=== PATIENT | male | born 1960 | race Caucasian/White ===

== ENCOUNTER 2016-05-11 23:59 | Inpatient (IN) | payer MEDICAID ==
--- NOTE | ~2016-05-11 | CO ---
Unit #: [id number] #: [id number] Patient: VELVET PORTILLO [id number] [address] [place], [place] [address] [id number] MR#: [id number] NAME: VELVET PORTILLO ROOM: 313 Age: 55 Sex: M Admission Date: 05/12/2016 : 1960 Attending Physician: Emmanuel Pratt M.D. Primary Care Physician: Primary Care Physician No CONSULTATION REPORT REASON FOR CONSULTATION Nonsustained ventricular tachycardia. HISTORY OF PRESENT ILLNESS This is a pleasant 55-year-old male, who was initially admitted on 05/12/2016 with complaints of intractable back pain and possible pneumonia. During the admission, the patient also had an elevated creatinine and was hyperkalemic. He has known chronic kidney disease, stage 4. However, his lab values continue to increase and he required initiation of hemodialysis during this hospitalization. We were asked to see the patient today secondary to an 8-beat run of nonsustained ventricular tachycardia. The patient denied any complaints of palpitations. He states he did not feel any chest pain, shortness of breath. The patient states he does not have any issues of chest pain or shortness of breath. His electrolytes were noted to be normal, potassium was 4.9, magnesium of 2.3. EKG was performed, which showed normal sinus rhythm, rate of 63 beats per minute, low voltage QRS, QTc interval of 458 msec. No acute ischemic changes noted. The patient was recently evaluated in 02/2016 with a Lexiscan Cardiolite, which showed no stress-induced ischemia. His LVEF at that time was found to be 56%. PAST MEDICAL HISTORY 1. Hypertension. 2. Diastolic congestive heart failure. 3. Paroxysmal atrial fibrillation. 4. Insulin-dependent diabetes mellitus. 5. Chronic kidney disease, stage 4, newly started on hemodialysis this admission. 6. Issues with noncompliance. 7. Legally blind in the right eye. 8. Morbid obesity with a BMI of 48. 9. Obstructive sleep apnea. 10. Depression. 11. Acute glaucoma in the past. 12. Diabetic peripheral neuropathy. PAST SURGICAL HISTORY 1. Left knee arthroscopic surgery. 2. Tonsillectomy. HOME MEDICATIONS Cosopt one drop to both eyes b.i.d., brimonidine tartrate one drop to both eyes daily, latanoprost 1 mL left eye at bedtime, Neurontin 100 mg p.o. Unit #: [id number] #: [id number] Patient: VELVET PORTILLO b.i.d., Paxil 10 mg p.o. daily, Coreg 3.125 mg p.o. b.i.d., Lipitor 20 mg p.o. q.h.s., hydralazine 25 mg p.o. b.i.d., ferrous gluconate 324 mg p.o. b.i.d., isosorbide dinitrate 20 mg p.o. b.i.d. ALLERGIES Penicillin. FAMILY HISTORY The patient reports family history of enlarged heart in father, but no documented coronary artery disease. SOCIAL HISTORY Denies tobacco or illicit drugs or alcohol other than occasional alcohol use. REVIEW OF SYSTEMS Negative except for what was stated above in the HPI. PHYSICAL EXAMINATION VITAL SIGNS: Temperature 98.1, respiratory rate 18 to 20, pulse is 60 to 70, blood pressure 124/64. GENERAL APPEARANCE: This is a morbidly obese, 55-year-old male, who is up in a chair currently. He is in no acute distress. HEENT: Head is atraumatic and normocephalic. Eyes; pupils are equal and round. NECK: Supple. Trachea is midline. No JVD. No carotid bruits. CARDIOVASCULAR: S1, S2. No murmurs, gallops, or rubs. RESPIRATORY: Lungs are clear anteriorly, diminished in the bases throughout. ABDOMEN: Obese, pannus, soft, nontender nondistended. Bowel sounds present. EXTREMITIES: Pulses are palpable. Trace to 1+ lower extremity edema. NEUROLOGIC: He is awake, alert, and oriented x3. He moves all extremities equally. He follows commands with ease. DIAGNOSTIC STUDIES LABORATORY RESULTS: Sodium is 136, potassium 4.9, chloride 99, CO2 of 25, BUN 53, creatinine 5.6, glucose 286, magnesium is 2.3. Last hemoglobin was 10.7, hematocrit 34.2, WBC is 14.6, platelet count 220. He currently has cardiac enzymes, which are pending. CARDIOVASCULAR STUDIES: EKG shows normal sinus rhythm, 63 beats per minute. Low voltage QRS, QTc interval of 458 msec. No acute ischemic changes noted. IMPRESSION 1. Nonsustained ventricular tachycardia, asymptomatic. 2. Chronic kidney disease, newly initiated on hemodialysis this admission. 3. Hypertension. 4. Morbid obesity. 5. History of paroxysmal atrial fibrillation. 6. Insulin-dependent diabetes mellitus. 7. Noncompliance issues. 8. Obstructive sleep apnea. 9. Legally blind in the right eye. 10. History of diastolic congestive heart failure. PLAN Unit #: [id number] #: [id number] Patient: VELVET PORTILLO We were asked to see the patient secondary to nonsustained ventricular tachycardia. The patient denies any complaints of chest pain. His EKG has been performed and reviewed and shows no acute ischemic change. The patient has undergone recent Lexiscan stress test in 02/2016, which showed no stress-induced ischemia. LVEF at that time was 56%. At this time, he is on appropriate cardiac medications. His electrolytes were noted to be within normal limits. Today potassium was 4.9, magnesium 2.3. For now, we will trend cardiac enzymes. Call for troponin greater than 0.5. We will check TSH level today and do routine labs, which include BMP, CBC, and magnesium level in the a.m. The patient does eventually need ischemic workup with cardiac catheterization once his hemodialysis is established. This can either be done depending on how much longer he is in the hospital either as an inpatient workup or outpatient depending on his length of stay and cardiac enzymes. For now, continue medical management and observe the patient's rhythm. Thank you for asking us to see this pleasant patient. We appreciate the consult. Dictated by... Bibi Lyons A.P.R.N. LMW/modl TD: 05/28/2016 05:29 JOB #: [id number] CONSULTATION REPORT Page 1 of 1 X Bibi Lyons APRN CONSULTATION REPORT
--- NOTE | ~2016-05-11 | BMI ---
[facility] Nutrition Therapy DATE: 05/15/16 Patient: VELVET PORTILLO Physician: CAIO Address: [address] [place] [address] STREET Room/Bed: [address] [place] [address], Zip: [place] [address] Admit Date: 05/12/16 Date of : 58 Height: 5 8 Weight: 302 137 HIGH BMI NOTE: DX: 55 yo male admitted for back and hip pain ANTHROPOMETRICS: Ht: 5'8" Wt: 137.3 kg (302#) BMI: 46.0 DIET: Consistent carb INTERVENTION: Consistent carb RECOMMENDATIONS: 1. Continue consistent carb diet to promote gradual weight loss towards healthy BMI. RD will f/u per protocol. Respectfully, Teri Angulo, [facility] Kumar Iniguez MS, RD, LD [facility] cc: client file
--- NOTE | ~2016-05-11 | CR72 ---
[facility] A Service of [facility] RADIOLOGY TEXT RESULTS PATIENT: VELVET PORTILLO LOCATION: A 313-01 : [birth year] UNIT #: [id number] AGE: [address]: Hugo Saini MD SEX: M ORDER DR: [id number] [facility] [address] [facility]. [place], [place] [address] [id number] I MR#: [id number] Acc #: [id number] NAME: VELVET PORTILLO : 1960 SEX: M STUDY DATE/TIME: 05/16/2016 13:40 UNIT: [facility] ROOM: [facility] STUDY DESCRIPTION: CR Chest Single View Portable Attending Physician: Jose Martin Pineda M.D. Referring Physician: Jose Martin Pineda M.D. Ordering Physician: Kirk Paredes M.D. Primary Care Physician: Primary Care Physician No MEDICAL IMAGING REPORT This report is preliminary unless electronic signature is present EXAM Portable chest, 05/16. INDICATION Shiley placement today. Shortness of air. FINDINGS AP portable chest compared with 02/23/2016. Heart remains enlarged and the mediastinum is widened. There is a right IJ central venous catheter with the tip in the SVC. No pneumothorax is seen. The lungs are clear. Dictated by... Donald Virgen Jr., M.D. THIS IS AN ELECTRONICALLY VERIFIED REPORT Donald Virgen Jr., M.D. at 05/19/2016 8:07 AM LACHO/laury TD: 05/16/2016 14:12 JOB #: [id number] MEDICAL IMAGING REPORT Page 1 of 1 COPY
--- NOTE | ~2016-05-11 | DS ---
Unit #: [id number] #: [id number] Patient: VELVET PORTILLO [id number] [address] [address] [id number] I MR#: [id number] NAME: VELVET PORTILLO ROOM: 549 Age: 55 Sex: M Admission Date: 05/12/2016 : 1960 Discharge Date: Attending Physician: Jose Martin Pineda M.D. Referring Physician: Jose Martin Pineda M.D. DISCHARGE SUMMARY PREOPERATIVE DIAGNOSES 1. Herniated nucleus pulposus. 2. Radiculopathy. POSTOPERATIVE DIAGNOSES 1. Herniated nucleus pulposus. 2. Radiculopathy. PROCEDURE PERFORMED Lumbar epidural steroid injection with fluoroscopic guidance. INDICATIONS FOR PROCEDURE The patient is a 55-year-old male with left-sided disk herniation including acute left lower extremity radicular type pain. He requested to do an epidural steroid and epidural pads with the patient's symptoms. We are going to provide surgical intervention. Risks and benefits of all have been reviewed. DESCRIPTION OF PROCEDURE The patient was placed in a seated position. Standard monitors were applied. Sterile prep and drape of the lumbar area was performed. The skin at the L4-L5 level was localized with 1% lidocaine. An 18-gauge Hustead needle was then advanced via loss of resistance technique and fluoroscopic guidance in toward the epidural space. After confirming proper positioning with fluoroscopy and radiographic contrast, 80 mg Depo-Medrol and 4 mL of 0.125% bupivacaine were deposited. The patient tolerated procedure otherwise well and was discharged to the recovery room in stable condition. Dictated by... Reid Tran/laith TD: 05/14/2016 23:20 JOB #: [id number] CC: Isiah Shearer M.D. Unit #: [id number] #: [id number] Patient: VELVET PORTILLO DISCHARGE SUMMARY Page 1 of 1 X Raulito Conteh MD X DISCHARGE SUMMARY
--- NOTE | ~2016-05-11 | CO ---
Unit #: [id number] #: [id number] Patient: VELVET PORTILLO [id number] [address] [place], [place] [address] [id number] I MR#: [id number] NAME: VELVET PORTILLO ROOM: 549 Age: 55 Sex: M Admission Date: 05/12/2016 : 1960 Attending Physician: Jose Martin Pineda M.D. Primary Care Physician: No Primary Care Physician Consultation Date: 05/13/2016 CONSULTATION REPORT HISTORY OF PRESENT ILLNESS The patient is a 55 year old who has suffered with a four-week history of incapacitating back and left hip pain. PAST MEDICAL HISTORY 1. Cardiac disease. 2. Congestive heart failure. 3. High blood pressure. 4. Diabetes. 5. Kidney disease. PAST SURGICAL HISTORY 1. Tonsillectomy. 2. Left knee surgery. 3. Left third, fourth, and fifth toe amputations. 4. Stent placement in the right eye. MEDICATIONS 1. Eye drops. 2. Brimonidine. 3. Latanoprost. 4. Neurontin. 5. Paxil. 6. Coreg. 7. Lipitor. 8. Hydralazine. 9. Ferrous gluconate. 10. Isosorbide. 11. Furosemide. 12. Humulin. REVIEW OF SYSTEMS A 14-point review of systems is negative except for the above complaints. PHYSICAL EXAMINATION The patient is above ideal weight. He has positive straight leg test on the left, negative on the right. He is otherwise neurologically intact. DIAGNOSTIC STUDIES IMAGING: MRI reveals a large disk herniation on the left at L5-S1. CLINICAL IMPRESSION Lumbar radiculopathy, severe. Unit #: [id number] #: [id number] Patient: VELVET PORTILLO RECOMMENDATIONS The patient was discussed the various treatment options including surgery. He would like to avoid that if at all possible. Perhaps an epidural steroid injection would be a way to temporize and facilitate outpatient physical therapy. I will ask Dr. Conteh to perform that at his convenience today if he is available. Dictated by... Isiah Shearer M.D. JOVANNA/tru TD: 05/13/2016 12:48 JOB #: [id number] CONSULTATION REPORT Page 1 of 1 X Isiah Shearer MD CONSULTATION REPORT
--- NOTE | ~2016-05-11 | HP ---
Unit #: [id number] #: [id number] Patient: VELVET PORTILLO [id number] [address] [place], [place] [address] [id number] I MR#: [id number] NAME: VELVET PORTILLO ROOM: 13796 Age: 55 Sex: M Admission Date: 05/12/2016 : 1960 Attending Physician: Jose Martin Pineda M.D. Referring Physician: Jose Martin Pineda M.D. Primary Care Physician: No Primary Care Physician HISTORY AND PHYSICAL REASON FOR ADMISSION Intractable low-back pain, bibasilar pneumonia seen on CT abdomen and pelvis. HISTORY OF PRESENT ILLNESS The patient is a morbidly obese 55-year-old male who states that over the past 48 hours he was unable to walk. In fact, he could only crawl while he was at home. He stated that he was unable to place his left foot on the ground secondary to intractable back pain and therefore presented to the ER for further evaluation through ER course. He apparently had undergone a CT abdomen and pelvis which did not show any acute process but raised the possibility of bibasilar pneumonia as well as lung nodules which were noted. Thus, he was admitted for the same. His initial white count was noted to be 10.7, his hemoglobin 10.3. MCV was noted to be 78. GFR 14. Creatinine 4.2, potassium of 3.4 as well. He had been recently admitted to our particular institution from February 23, 2016 to February 29, 2016, with a diagnosis at that time of acute on chronic kidney disease. His baseline creatinine is 4.3. PAST MEDICAL HISTORY 1. Chronic kidney disease, baseline creatinine 4.3. 2. Paroxysmal atrial fibrillation. 3. Anasarca. 4. Diabetes, type 2, poor controlled with noncompliance. 5. Hypertension. 6. Diastolic heart failure, ejection fraction 55% to 60%. 7. Iron-deficiency anemia, baseline close to 10. 8. Sleep apnea. 9. Morbid obesity. 10. Moderate protein malnutrition. 11. Depression. 12. Acute glaucoma in the past. 13. Diabetic peripheral neuropathy. 14. Noncompliance with medications. 15. Legally blind from right eye. 16. History of left knee arthroscopy. 17. Tonsillectomy. HOME MEDICATIONS 1. Eye drops as directed. 2. Neurontin. 3. Paxil. Unit #: [id number] #: [id number] Patient: VELVET PORTILLO 4. Coreg. 5. Lipitor. 6. Hydralazine. 7. Ferrous gluconate. 8. Isosorbide dinitrate. 9. Lasix. 10. Humulin R. 11. Humulin N. ALLERGIES Penicillin. FAMILY HISTORY Reviewed, noncontributory, nonpertinent. SOCIAL HISTORY No smoking. No illicit drug use. Social alcohol use. REVIEW OF SYSTEMS Please see HPI. A 12-point otherwise negative except for those positive and noted in the HPI. PHYSICAL EXAMINATION VITAL SIGNS: Temperature 98.2, pulse 64, respiratory rate 16, blood pressure 168/87. GENERAL APPEARANCE: The patient is a morbidly obese 55-year-old male who is lying flat, states that he has severe pain in his left lower extremity as well as back. HEENT: Head: Atraumatic, normocephalic. Ears: Tympanic membranes did not reveal any erythema or injection. NECK: Supple. CARDIOVASCULAR: S1, S2 without murmur. RESPIRATORY: Diminished anterior auscultation bilaterally. GASTROINTESTINAL/ABDOMEN: Distention noted. Nontender. EXTREMITIES: Lower extremities: No calf tenderness. One plus edema noted. Straight leg raise test positive, 45 degrees on left side. NEUROLOGIC: The patient is A and O x3. DIAGNOSTIC STUDIES LABORATORY: Labs at time of admission: Please see above. INITIAL ADMISSION DIAGNOSES 1. Intractable low-back pain. 2. Left lower extremity radiculopathy. 3. Bibasilar pneumonia seen on CT abdomen and pelvis. 4. Chronic kidney disease, baseline creatinine approximately 4.[address] Vasquez of nephrology services. 5. 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 6. Diabetes type 2 with last hemoglobin A1c in February 2016 of 9.4%. 7. Longstanding history of noncompliance. 8. Hypertension. 9. Diastolic heart failure. 10. Iron-deficiency anemia, baseline hemoglobin 10. 11. Probable sleep apnea. 12. Severe morbid obesity. PLAN 1. Admission telemetry floor. Unit #: [id number] #: [id number] Patient: VELVET PORTILLO 2. CT chest noncontrast. 3. I doubt given clinical picture the patient is breathing on room air, not tachycardic with a normal white count if he truly has pneumonia versus mild fluid overload. 4. Will check a CT chest to ascertain. 5. Consideration may be given to nephrology services; however, his creatinine is normal. His main concern at this point in time is his intractable low-back pain as well as difficulty with ambulation. Therefore, will attempt MRI lumbar spine without contrast and pending those results spine consultation with Dr. Shearer and associates may be necessary. Plans have been reviewed with patient in detail. He is full code. Dictated by Jose Martin Pineda M.D. EDUARDO/tru TD: 05/12/2016 11:46 JOB #: [id number] HISTORY AND PHYSICAL Page 1 of 1 X Jose Martin Pineda MD X HISTORY AND PHYSICAL
--- NOTE | ~2016-05-11 | DS ---
Unit #: [id number] #: [id number] Patient: VELVET PORTILLO [id number] [address] [address] [id number] I MR#: [id number] NAME: VELVET PORTILLO ROOM: 313 Age: 55 Sex: M Admission Date: 05/12/2016 : 1960 Discharge Date: Attending Physician: Seema Ryan M.D. Referring Physician: Jose Martin Pineda M.D. Primary Care Physician: No Primary Care Physician DISCHARGE SUMMARY Please see detailed discharge summary dictated by Dr. Pineda on May 18. DISCHARGE DIAGNOSES 1. End stage renal disease, needing hemodialysis: Outpatient hemodialysis has been set up. 2. Intractable back pain, improved, status post epidural injection. 3. Toxic metabolic encephalopathy, likely secondary to narcotics, uremia and also from Solu-Medrol. 4. Diabetes mellitus type 2, uncontrolled. 5. Paroxysmal atrial fibrillation with history. 6. Anemia. 7. Severe morbid obesity. 8. Obstructive sleep apnea. 9. Nonsustained ventricular tachycardia, asymptomatic. 10. Noncompliant. 11. Legally blind in right eye. 12. History of chronic diastolic heart failure. CONSULTATIONS 1. Dr. Paredes. 2. Dr. Pineda. 3. Dr. Vasquez. 4. Dr. Lyons. 5. Dr. Shearer. 6. Dr. Conteh. LAB DATA Glucose 194, sodium 134, potassium 4.6, creatinine 7.0, WBC 8.3, hemoglobin 9.7, platelets 150. IMAGING: Chest x-ray stable with mild vascular congestion. ALLERGIES Penicillin. DISCHARGE MEDICATIONS 1. Sodium bicarbonate 650 p.o. three times daily. 2. Cymbalta 30 daily. 3. Coreg 12.5 p.o. b.i.d. 4. Cosopt eyedrops b.i.d. 5. Bumex 2 mg p.o. b.i.d. 6. Xalatan eyedrops at bedtime. 7. Lipitor 20 daily. 8. Hydralazine 100 three times daily. Unit #: [id number] #: [id number] Patient: VELVET PORTILLO 9. Cozaar 50 daily. 10. Insulin NPH 30 units subcu b.i.d. 11. Ferrous gluconate 324 mg p.o. b.i.d. 12. Brimonidine 0.2% ophthalmic solution b.i.d. 13. Renagel 1600 mg p.o. three times daily. 14. Aspirin 81 daily. 15. Isosorbide dinitrate 20 mg p.o. b.i.d. HOSPITALIZATION COURSE 55-year-old admitted on May 12 for intractable back pain, found to have acute kidney injury. He is end stage so hemodialysis has been started. Currently, he is continuing having hemodialysis. Because of insurance issues, he couldn't find outpatient dialysis part. He does have chronic kidney disease before admission. Baseline creatinine is 4.3. Toxic metabolic encephalopathy, multiple etiology: Currently, patient is oriented x3. He is okay to be discharged home. Nonsustained ventricular tachycardia: Patient is seen by cardiology. They told to continue Coreg. Patient is asymptomatic. Currently sinus rhythm. Chronic back pain: Patient seen by Dr. Shearer. He did receive epidural injection. Hypertension, uncontrolled: Medication has been added. Currently, blood pressure is 140/72. Paroxysmal atrial fibrillation: Patient is seen by cardiology. Patient is not on any anticoagulation. Patient is on Coreg. Diabetes mellitus type 2, uncontrolled: Continue with insulin. Morbid obesity secondary to calories: Continue with low calorie diet. Patient has mild protein malnutrition. Patient has mild hyponatremia secondary to end stage renal disease. Hypocalcemia, treated with calcium. Hyperphosphatemia secondary to end stage renal disease, resolved. Discussed with Dr. Mendez's partner. According to her, patient can be discharged home after the dialysis today. Patient to have dialysis set up as an outpatient as per child support case officer. Dialysis orders as per dowel setting machine operator. Patient will be discharged home. Follow with family physician in one week time, follow with Dr. Mendez in two weeks time. Discharge time taken is 40 minutes. Dictated by... Seema Ryan M.D. Unit #: [id number] #: [id number] Patient: VELVET PORTILLO NEHEMIAS/nimesh TD: 06/03/2016 11:23 JOB #: [id number] DISCHARGE SUMMARY Page 1 of 1 X Seema Ryan MD DISCHARGE SUMMARY
--- NOTE | ~2016-05-11 | DS ---
Unit #: [id number] #: [id number] Patient: VELVET PORTILLO [id number] [address] [place], [place] [address] [id number] I MR#: [id number] NAME: VELVET PORTILLO ROOM: 313 Age: 55 Sex: M Admission Date: 05/12/2016 : 1960 Discharge Date: 05/18/2016 Attending Physician: Hugo Saini M.D. Referring Physician: Jose Martin Pineda M.D. DISCHARGE SUMMARY TRANSITION OF CARE SUMMARY REASON FOR ADMISSION Intractable back pain. HISTORY OF PRESENT ILLNESS The patient is a 55-year-old male, originally admitted secondary to concern for possible healthcare-acquired pneumonia as well as intractable low back pain. Through initial hospital course, clinical suspicion was low for pneumonia, although chest x-ray raised the possibility of infiltrates. He underwent a CT chest noncontrast, which essentially came back negative. His antibiotics were rapidly de-escalated and eventually discontinued. However, his intractable back pain persisted to the point, where he could no longer ambulate. MRI of the lumbar spine was performed, which did show impingement as well as severe spinal stenosis. We consulted Dr. Shearer of Spine Services, who recommended evaluation from Dr. Conteh for possible L5-S1 epidural steroid injection. The patient underwent aforementioned steroid injection on 05/14/2016. Afterwards he stated that he started feeling much better in regard to his lower back discomfort and in actuality we were getting ready to discharge him home. When his morning laboratory studies yielded a creatinine of 5.4, his routine baseline is closer to 4.2, although his creatinine has fluctuated off and on. We consulted Nephrology Services, Dr. Nicol Vasquez, as she had seen the patient in the past. She started following the patient and the following day on 05/16/2016, the patient began having mental status changes as well as increased confusion. He was subsequently transferred to the ICU. Emergent orders were written for hemodialysis. Shiley was placed at that point in time. Dr. Paredes was consulted. Since that time, the patient has been transitioned out of the ICU, placed on telemetry floor. Plans are noted for tunnel catheter placement in a.m. to initiate hemodialysis. At this point in time, his mental status is now improved. It should be noted that he is legally blind in his right eye and he does have chronic right eye dilation which is his baseline. At this point in time, his intractable low back pain has shown improvement. Physical and Occupational Therapy Services have evaluated and worked with the patient off and on. The patient likely can be discharged home once his hemodialysis set up as an outpatient. Unit #: [id number] #: [id number] Patient: VELVET PORTILLO Current clinical diagnosis as of 05/18/2016, 1. End-stage renal disease, now on hemodialysis. 2. Intractable back pain, improved, status post epidural injection. 3. Toxic metabolic encephalopathy/mental status changes likely multifactorial secondary to narcotic/uremia signs or symptoms/effects of IV Solu-Medrol. 4. Diabetes. 5. Paroxysmal atrial fibrillation history. 6. Anemia. 7. Severe morbid obesity. 8. Obstructive sleep apnea. Further hospital course and/or disposition including medications will be dictated by my associate at the time of discharge. Dictated by... Jose Martin Pineda M.D. EDUARDO/laith TD: 05/19/2016 06:10 JOB #: [id number] DISCHARGE SUMMARY Page 1 of 1 X Jose Martin Pineda MD X DISCHARGE SUMMARY
--- NOTE | ~2016-05-11 | CT57 ---
[facility] A Service of [facility] RADIOLOGY TEXT RESULTS PATIENT: VELVET PORTILLO LOCATION: [facility] 549-01 : 58 UNIT #: [id number] AGE: [address]: Jose Martin Pineda MD SEX: M ORDER DR: [id number] [place] [id number] [facility]. [place], [place] [address] [id number] I MR#: [id number] Acc #: [id number] NAME: VELVET PORTILLO : 1960 SEX: M STUDY DATE/TIME: 05/12/2016 13:13 UNIT: [facility] ROOM: [facility] STUDY DESCRIPTION: CT Chest Wo Cont Attending Physician: Jose Martin Pineda M.D. Referring Physician: Jose Martin Pineda M.D. Ordering Physician: Jose Martin Pineda M.D. Primary Care Physician: No Primary Care Physician MEDICAL IMAGING REPORT This report is preliminary unless electronic signature is present EXAM CT of the chest without contrast INDICATIONS A 55-year-old male. Pulmonary nodules demonstrated on CT of abdomen and pelvis today. COMPARISON STUDIES CT abdomen and pelvis from same day. This CT exam was performed with one or more of the following radiation dose reduction techniques: automatic exposure control, adjustment of mA and/or kV according to patient size, and iterative reconstruction. FINDINGS There are scattered tiny subcentimeter nodules in the left lower lobe. These are nonspecific. There are a few scattered tiny scattered tiny nodules in the right lower lobe as well. There is atelectasis in the lower lobes. No dense airspace consolidation. There are mildly prominent mediastinal lymph nodes which are nonspecific and may be reactive. No pleural effusion. Gynecomastia. Please refer to separately dictated CT of the abdomen and pelvis for findings below the diaphragm. The bone windows are unremarkable. IMPRESSION Scattered tiny nodules in both lower lobes, left greater than right. These are nonspecific and may be infectious or inflammatory. Follow up chest CT in 3-6 months recommended to document. Dictated by... [facility] A Service of [facility] RADIOLOGY TEXT RESULTS PATIENT: VELVET PORTILLO LOCATION: [facility] 549-01 : 58 UNIT #: [id number] AGE: [address]: Jose Martin Pineda MD SEX: M ORDER DR: Philip Escobar M.D. THIS IS AN ELECTRONICALLY VERIFIED REPORT Philip Escobar M.D. at 05/13/2016 10:01 AM JOANA/christiano TD: 05/12/2016 20:47 JOB #: [id number] MEDICAL IMAGING REPORT Page 1 of 1 COPY
--- NOTE | ~2016-05-11 | CR181 ---
[facility] A Service of [facility] & [facility] RADIOLOGY TEXT RESULTS PATIENT: VELVET PORTILLO LOCATION: [place] [address]- : 58 UNIT #: [id number] AGE: [address]: Jose Martin Pineda MD SEX: M ORDER DR: [id number] [facility] [address] [facility]. [place], [place] [address] [id number] I MR#: [id number] Acc #: [id number] NAME: VELVET PORTILLO : 1960 SEX: M STUDY DATE/TIME: 05/12/2016 3:10 UNIT: [facility] ROOM: [id number] STUDY DESCRIPTION: CR Lumbar Spine 2 or 3 Views Attending Physician: Jose Martin Pineda M.D. Referring Physician: Jose Martin Pineda M.D. Ordering Physician: Zulma Hernandez M.D. Primary Care Physician: Primary Care Physician No MEDICAL IMAGING REPORT This report is preliminary unless electronic signature is present EXAM Lumbar series 05/12/1969 INDICATIONS Low back pain in a 55-year-old male. Extreme back pain for 2 days. No known injury. TECHNIQUE 3 views of the lumbar spine. No relevant comparisons. FINDINGS Correlation is made chest x-ray 12/10/2008. Exam degraded by body habitus and motion. Vertebral body heights and alignment preserved. No acute fracture. No significant degenerative change. There is mild facet arthropathy in the lower lumbar levels. There is degenerative disc disease at the thoracolumbar junction. Mild wedge deformity of T12 along its anterior, superior and inferior aspects is unchanged from prior chest x-ray for technical factors. IMPRESSION 1. No acute fracture, malalignment or significant degenerative change. Chronic mild wedge deformity of T12 unchanged from prior chest x-ray 12/10 02/24. Dictated by... Alfred Ayala M.D. THIS IS AN ELECTRONICALLY VERIFIED REPORT Alfred Ayala M.D. at 05/12/2016 9:59 PM SEA/unique [facility] A Service of [facility] & [facility] RADIOLOGY TEXT RESULTS PATIENT: VELVET PORTILLO LOCATION: [facility] 549-01 : 59 UNIT #: [id number] AGE: [address]: Jose Martin Pineda MD SEX: M ORDER DR: TD: 05/12/2016 10:39 JOB #: [id number] MEDICAL IMAGING REPORT Page 1 of 1 COPY
--- NOTE | ~2016-05-11 | CO ---
Unit #: [id number] #: [id number] Patient: VELVET PORTILLO [id number] [address] [place], [place] [address] [id number] I MR#: [id number] NAME: VELVET PORTILLO ROOM: 549 Age: 55 Sex: M Admission Date: 05/12/2016 : 1960 Attending Physician: Jose Martin Pineda M.D. Primary Care Physician: Ophelia Primary Care Physician Consultation Date: 05/15/2016 CONSULTATION REPORT REASON FOR CONSULT CKD, stage 4-5. HISTORY OF PRESENT ILLNESS Patient is a 55-year-old, white male with a history of CKD, stage 4-5, secondary to diabetes with baseline creatinine around 4.5. Admitted with back pain, status post injections, with increase in creatinine today to 5.4. He was seen by us on previous admission and was felt to have CKD secondary to diabetes. He never followed up in our office. Now, he has complaints of shortness of breath. He has some edema. He states he has not been taking his medications as he should at home. PAST MEDICAL HISTORY Significant for hypertension; diabetes; CKD, stage 4-5; and morbid obesity. SOCIAL HISTORY No tobacco. No alcohol. FAMILY HISTORY Noncontributory. MEDICATIONS His current medications include: 1. Isordil 20 mg p.o. b.i.d. 2. Ferrous gluconate 324 b.i.d. 3. Coreg 3.125 b.i.d. 4. Humulin N. 5. Hydralazine p.r.n. 6. Flexeril 10 mg p.o. q.8. 7. Zofran p.r.n. 8. Ativan p.r.n. 9. Protonix 40 mg p.o. every day. 10. Lasix 80 mg every day. 11. Lyrica 75 b.i.d. 12. Hydralazine 75 q.8 hours. 13. Cymbalta 30 every day. 14. Lipitor 20 q.h.s. REVIEW OF SYSTEMS Twelve-point review of systems completely negative for everything, except positive for shortness of breath. PHYSICAL EXAMINATION VITAL SIGNS: Blood pressure is 132/81, heart rate 67, respirations 20, Unit #: [id number] #: [id number] Patient: VELVET PORTILLO and temperature is 98. GENERAL: He is an obese, white male. HEENT: Shows no JVD. No LAD. CARDIOVASCULAR: Regular rate and rhythm without murmurs, rubs, or gallops. LUNGS: Clear to auscultation bilaterally. ABDOMEN: Soft, nontender, and nondistended. EXTREMITIES: Show 1+ lower extremity edema. NEURO: Grossly intact. PSYCHIATRIC: He is alert and oriented x3. DIAGNOSTIC STUDIES LABORATORY: Show a sodium of 131, potassium 5.3, chloride 100, bicarb 19, BUN is 83, creatinine 5.4, and calcium is 7.7. ASSESSMENT AND PLAN 1. Acute versus worsening of his CKD stage 5 with creatinine up to 5.4. BUN is elevated at 83 and now his potassium is elevated and he also has acidosis. He is likely approaching end stage renal disease. He never followed up in our office. Will prepare him for dialysis. Discussed dialysis with him at length. Will order upper extremity vein mapping. If his labs are improved, no need to initiate dialysis this admission. We will repeat labs in the a.m. 2. Hyperkalemia with a potassium of 5.3. Will give 15 g of Kayexalate. Will change his diet to low potassium diet. Will follow closely. 3. Metabolic acidosis, likely secondary to his renal failure. Will start sodium bicarbonate 650 mg 3 times a day. 4. Hypocalcemia. Will check vitamin D studies. 5. Diabetes, currently on insulin. Will continue. 6. Hypertension. Blood pressure currently at goal. Dictated by... Nicol Vasquez M.D. Dequan TD: 05/16/2016 07:24 JOB #: [id number] CONSULTATION REPORT Page 1 of 1 X Nicol Vasquez MD X CONSULTATION REPORT
--- NOTE | ~2016-05-11 | CT4 ---
[facility] A Service of [facility] RADIOLOGY TEXT RESULTS PATIENT: VELVET PORTILLO LOCATION: [facility] 549-01 : 59 UNIT #: [id number] AGE: [address]: Jose Martin Pineda MD SEX: M ORDER DR: [id number] [facility] [address] [facility]. [place], [place] [address] [id number] I MR#: [id number] Acc #: [id number] NAME: VELVET PORTILLO : 1960 SEX: M STUDY DATE/TIME: 05/12/2016 5:27 UNIT: [facility] ROOM: 67[address] STUDY DESCRIPTION: CT Abd and Pelv Wo Cont Attending Physician: Jose Martin Pineda M.D. Referring Physician: Jose Martin Pineda M.D. Ordering Physician: Vito Mensah Aprn Primary Care Physician: Ophelia Primary Care Physician MEDICAL IMAGING REPORT This report is preliminary unless electronic signature is present EXAM Abdomen and pelvis CT, no contrast, 05/12/2016. INDICATION Low back pain 2 days, cannot walk, left flank and hip pain. TECHNIQUE Noncontrast abdomen and pelvis CT was performed. This CT exam was performed with one or more of the following radiation dose reduction techniques: automatic exposure control, adjustment of mA and/or kV according to patient size, and iterative reconstruction. COMPARISON STUDIES No comparisons. FINDINGS CT ABDOMEN: Exam markedly degraded by noncontrast technique. Lung bases demonstrate faint tree-in-bud opacities in the left lower lobe. There are 4 mm or less noncalcified nodules in the left lower lobe. There is a 7 mm noncalcified, irregularly marginated, nodular density in the right lower lobe. These are favored to be inflammatory or infectious but should be followed up to resolution after appropriate therapy. If the patient is at low risk for malignancy, then interval followup CT chest can occur at 6-12 months. If the patient is at high risk, then interval followup CT should occur at 3-6 months. No pleural or pericardial effusion. Aorta demonstrates no aneurysm. Spleen and adrenal glands are unremarkable. Mild hyperplasia of the adrenal glands bilaterally. Incidental benign right adrenal adenoma measures 71.6 cm. Pancreas atrophic. There is uncomplicated cholelithiasis. Liver unremarkable. Kidneys demonstrate no radiopaque STS. [facility] A Service of [facility] RADIOLOGY TEXT RESULTS PATIENT: VELVET PORTILLO LOCATION: [facility] 549-01 : 59 UNIT #: [id number] AGE: [address]: Jose Martin Pineda MD SEX: M ORDER DR: stone or hydronephrosis on either side. Probable reactive retroperitoneal nodes. Probable reactive common iliac chain nodes, left more so than right. CT PELVIS: Bladder distended but otherwise unremarkable. Prostate unremarkable. There is no free fluid or drainable fluid collection in the pelvis. Bowel demonstrates no inflammatory change or obstruction and the appendix is normal. Reactive-appearing inguinal nodes. Tiny umbilical hernia containing fat only. There is no suspicious bone lesion. No compression fracture or malalignment. Mild degenerative changes in the thoracolumbar spine. IMPRESSION 1. No clearly acute process in the abdomen or pelvis. No bowel obstruction, drainable fluid collection, or focal area of inflammatory change and the appendix is normal. 2. Uncomplicated cholelithiasis. 3. Incidental benign right adrenal adenoma. 4. Bibasilar tree-in-bud infiltrates most characteristic of inflammatory or infectious process, worse on the left than the right. Followup chest CT recommended to document interval decrease in size of the presumably inflammatory or infectious nodules based upon Fleischner criteria as described in the body of the report. 5. There is no compression fracture or malalignment of the thoracolumbar spine. There are mild degenerative changes. Dictated by... Alfred Ayala M.D. THIS IS AN ELECTRONICALLY VERIFIED REPORT Alfred Ayala M.D. at 05/12/2016 10:01 PM SEA/laury TD: 05/12/2016 10:55 JOB #: [id number] MEDICAL IMAGING REPORT Page 1 of 1 COPY
--- NOTE | ~2016-05-11 | CR72 ---
[facility] A Service of [facility] & [facility] RADIOLOGY TEXT RESULTS PATIENT: VELVET PORTILLO LOCATION: [facility] 313-01 : 59 UNIT #: [id number] AGE: [address]: Hugo Sanii MD SEX: M ORDER DR: [id number] [facility] [address] [facility]. [place], [place] [address] [id number] I MR#: [id number] Acc #: [id number] NAME: VELVET PORTILLO : 1960 SEX: M STUDY DATE/TIME: 05/18/2016 5:24 UNIT: A U ROOM: [facility] STUDY DESCRIPTION: CR Chest Single View Portable Attending Physician: Jose Martin Pineda M.D. Referring Physician: Jose Martin Pineda M.D. Ordering Physician: Kirk Paredes M.D. Primary Care Physician: Primary Care Physician No MEDICAL IMAGING REPORT This report is preliminary unless electronic signature is present EXAM Portable chest, 05/18/2016 HISTORY Pneumonia, shortness of air for 6 days. COMPARISONS Chest, 05/17/2016 FINDINGS Frontal chest demonstrates right IJ central venous catheter in stable position. No pneumothorax. Low lung volumes. Lungs otherwise clear. Heart size and mediastinum are stable. Mild central vascular congestion. IMPRESSION Stable right IJ central venous catheter. Low lung volumes with mild central vascular congestion. Dictated by... Morgan Miranda M.D. THIS IS AN ELECTRONICALLY VERIFIED REPORT Morgan Miranda M.D. at 05/19/2016 4:40 PM MARKIE/eleazar TD: 05/18/2016 17:18 JOB #: [id number] MEDICAL IMAGING REPORT Page 1 of 1 COPY
--- NOTE | ~2016-05-11 | CR72 ---
[facility] A Service of [facility] & [facility] RADIOLOGY TEXT RESULTS PATIENT: VELVET PORTILLO LOCATION: A 313-01 : 58 UNIT #: [id number] AGE: [address]: Jose Martin Pineda MD SEX: M ORDER DR: [id number] [facility] [address] [facility]. [place], [place] [address] [id number] I MR#: [id number] Acc #: [id number] NAME: VELVET PORTILLO : 1960 SEX: M STUDY DATE/TIME: 05/17/2016 4:58 UNIT: [facility] ROOM: [facility] STUDY DESCRIPTION: CR Chest Single View Portable Attending Physician: Jose Martin Pineda M.D. Referring Physician: Jose Martin Pineda M.D. Ordering Physician: Kirk Paredes M.D. Primary Care Physician: Primary Care Physician No MEDICAL IMAGING REPORT This report is preliminary unless electronic signature is present EXAM Portable chest, 05/17/2016 HISTORY Shortness of air and respiratory failure for 5 days. COMPARISON Chest, 05/16/2016 FINDINGS Frontal chest demonstrates stable right IJ central venous catheter. No pneumothorax. Lungs clear. Heart size and mediastinum are stable. IMPRESSION Stable right IJ central venous catheter. No pneumothorax. No other acute chest findings. No change from 05/16/2016. Dictated by... Morgan Miranda M.D. THIS IS AN ELECTRONICALLY VERIFIED REPORT Morgan Miranda M.D. at 05/17/2016 11:29 PM Kandace TD: 05/17/2016 15:51 JOB #: [id number] MEDICAL IMAGING REPORT Page 1 of 1 COPY
--- NOTE | ~2016-05-11 | CO ---
Unit #: [id number] #: [id number] Patient: VELVET PORTILLO [id number] [address] [place], [place] [address] [id number] I MR#: [id number] NAME: VELVET PORTILLO ROOM: 313 Age: 55 Sex: M Admission Date: 05/12/2016 : 1960 Attending Physician: Hugo Saini M.D. Primary Care Physician: No Primary Care Physician Consultation Date: 05/15/2016 CONSULTATION REPORT REASON FOR CONSULTATION Critical care management and respiratory failure. HISTORY OF PRESENT ILLNESS This patient basically is a 55-year-old obese male who has a past medical history of chronic kidney disease, extremely noncompliant and presents with a complaint of shortness of breath and was given pain medication for back pain and currently lethargic on BiPAP. I am seeing the patient. He is able to be aroused, answers questions appropriately, denies any headache, blurry vision, no chest pain. REVIEW OF SYSTEMS Rest of the review of systems is limited because the patient is on BiPAP. PAST MEDICAL HISTORY Hypertension, diabetes, chronic kidney disease, morbid obesity, obstructive sleep apnea, patient is noncompliant. SOCIAL HISTORY Nonsmoker, no alcohol, no drug abuse. FAMILY HISTORY None as per record. MEDICATION Medication as per MAR has been reviewed. ALLERGIES Allergies have been reviewed. PHYSICAL EXAMINATION VITAL SIGNS: Temperature 98. Pulse 87. Respiration 12. Blood pressure 130/70. NEUROLOGICAL: Awake, alert and oriented. No neuro deficit. HEENT: PERRLA. EOMI. NECK: Supple. No JVD. CHEST: Bilateral air entry. Bilateral mild rhonchi. GI: Nontender, soft. Bowel sounds positive. EXTREMITIES: No edema. DIAGNOSTIC STUDIES LABORATORY: Labs have been reviewed. Unit #: [id number] #: [id number] Patient: VELVET PORTILLO IMAGING: Has been reviewed. ASSESSMENT 1. Acute respiratory failure. 2. Metabolic acidosis. 3. Acute renal failure. 4. Obstructive sleep apnea. 5. Volume overload. 6. Chronic pain. PLAN Plan is to continue BiPAP support, urgent dialysis, Nephrology consultation, volume removal, GI and DVT prophylaxis, bronchodilators. Patient will be closely monitored. Thank you very much for this consultation. Dictated by... Reid Deleon/geri TD: 05/21/2016 21:41 JOB #: [id number] CONSULTATION REPORT Page 1 of 1 X Kirk Paredes MD CONSULTATION REPORT
--- NOTE | ~2016-05-11 | CT71 ---
[facility] A Service of [facility] & [facility] RADIOLOGY TEXT RESULTS PATIENT: VELVET PORTILLO LOCATION: [facility]3-19 : 58 UNIT #: [id number] AGE: [address]: Jose Martin Pineda MD SEX: M ORDER DR: [id number] [facility] [address] [facility]. [place], [place] [address] [id number] I MR#: [id number] Acc #: [id number] NAME: VELVET PORTILLO : 1960 SEX: M STUDY DATE/TIME: 05/16/2016 10:31 UNIT: C5B ROOM: [facility] STUDY DESCRIPTION: CT Head Wo Contrast Attending Physician: Jose Martin Pineda M.D. Referring Physician: Jose Martin Pineda M.D. Ordering Physician: Jose Martin Pineda M.D. Primary Care Physician: No Primary Care Physician MEDICAL IMAGING REPORT This report is preliminary unless electronic signature is present EXAM Head CT without contrast. HISTORY Weakness in the arms beginning 2 hours ago. TECHNIQUE Axial images were obtained without contrast. This CT exam was performed with one or more of the following radiation dose reduction techniques: automatic exposure control, adjustment of mA and/or kV according to patient size, and iterative reconstruction. FINDINGS Ventricular size and configuration are normal. There is no evidence of acute infarct or hemorrhage. There are no extra-axial fluid collections. No mass lesion or mass effect is seen. There are no skull fractures. IMPRESSION Normal noncontrast head CT. STAT * RESULT Dictated by... Donald Bishop M.D. THIS IS AN ELECTRONICALLY VERIFIED REPORT Donald Bishop M.D. at 05/16/2016 4:54 PM DEIDRE/mi TD: 05/16/2016 11:03 JOB #: [id number] [facility] A Service of [facility] & [facility] RADIOLOGY TEXT RESULTS PATIENT: VELVET PORTILLO LOCATION: [address] : [birth year] UNIT #: [id number] AGE: [address]: Jose Martin Pineda MD SEX: M ORDER DR: MEDICAL IMAGING REPORT Page 1 of 1 COPY
--- NOTE | ~2016-05-11 | A ---
[facility] Nutrition Therapy DATE: 05/22/16 Patient: VELVET PORTILLO Physician: REBEKAHR Address: [address] Room/Bed: [address] [place] [address], Zip: [place] [address] Admit Date: 05/12/16 Date of : 58 Height: 5 8 Weight: 271 123 NUTRITIONAL ASSESSMENT: REASON: LOS ASSESSMENT PT IS 55 Y.O. MALE ADMITTED FOR BACK AND HIP PAIN INTEO LEGS PMH: ESRD ON HD, DM, AFIB, K[place], HTN, LEGALLY BLIND (R) EYE, NONCOMPLIANT Anthropometrics: 5'8", WT: 271# (123 KG), BMI: 41.2 Labs: GLU: 198, BUN: 32, CREAT: 4.0, ALB: 2.6, ALT: 42, PHOS: 5.3, A1c: 9.6, GFR: 15.7 Meds: PHENERGAN, NOVOLOG, ZOFRAN, OS-APOLINAR 500+D, LIPITOR, FERROUS GLUCONATE, HUMULIN I/O & Bowel function: 1000/654, 3 BMs NOTED Skin Integrity: (L) FOOT ABRASION NOTED EDEMA: BLE 3+ EDEMA; BUE 2+ EDEMA; ABD GENERALIZED EDEMA Estimated Nutrition Needs: N/A Assessment: CHART REVIEWED AND EVENTS NOTED. PT SEEN FOR LENGTH OF STAY (10 DAYS). PT REPORTS GOOD PO INTAKE AND APPETITE, NO C/O N/V/D. PT DENIES ANY RECENT WEIGHT LOSS. THIS RD PROVIDED WRITTEN AND VERBAL CC/CKD DIET EDUCATION. PT REPORTED NO DIET QUESTIONS AT THIS TIME. RD TO REMAIN AVAILABLE. Dx: EXCESSIVE CALORIC INTAKE R/T LIFESTYLE AEB BMI OF 41.2. -ALTERED NUTRIENT UTILIZATION R/T PMH AEB NEED FOR THERAPEUTIC DIET ORDER. Intervention: 1. CC+HH+RENAL+ FLUID RESTRICTION 2. DIET EDUCATION Monitoring, Evaluation and Goals: 1. WEIGHTS; PROMOTE GRADUAL WEIGHT LOSS TOWARDS HEALTHY BMI (19.0-25.0) 2. LABS; WNL MONITOR: -PO INTAKE -WEIGHTS -EDUCATION NEEDS Recommendations: 1. CONTINUE TO ENCOURAGE COMPLIANCE OF CURRENT DIET ORDER ABOVE TO PROMOTE GRADUAL WEIGHT [facility] Nutrition Therapy DATE: 05/22/16 Patient: VELVET PORTILLO Physician: CAIO Address: [address] Room/Bed: [facility] [facility], Zip: [place] [address] Admit Date: 05/12/16 Date of : [birth year] Height: 5 8 Weight: 271 123 LOSS TOWARDS HEALTHY BMI (19.0-25.0) OR +/-10%IBW RD WILL F/U PER PROTOCOL PT IS MILDLY COMPROMISED Respectfully, EDDIE FROST MS, RD, LD [facility] cc: client file
--- NOTE | ~2016-05-11 | US146 ---
[facility] A Service of [facility] RADIOLOGY TEXT RESULTS PATIENT: VELVET PORTILLO LOCATION: CICCU3 CICCU3-19 : 58 UNIT #: [id number] AGE: [address]: Jose Martin Pineda MD SEX: M ORDER DR: [id number] [facility] [address] [place], [place] [address] [id number] I MR#: [id number] Acc #: [id number] NAME: VELVET PORTILLO : 1960 SEX: M STUDY DATE/TIME: 05/15/2016 14:34 UNIT: C5B ROOM: [facility] STUDY DESCRIPTION: US Vein Map Hemodial Access Attending Physician: Jose Martin Pineda M.D. Referring Physician: Jose Martin Pineda M.D. Ordering Physician: Jose Martin Pineda M.D. Primary Care Physician: No Primary Care Physician MEDICAL IMAGING REPORT This report is preliminary unless electronic signature is present EXAM Bilateral upper extremity vein mapping CLINICAL HISTORY Upper extremity vein mapping for fistula placement FINDINGS The following size measurements are obtained in millimeters. Right cephalic vein: Upper proximal 6.3, mid 5.3, distal 6.0, elbow 10.0, lower proximal 10.1, mid 3.2, distal 2.0. There is thrombus and noncompressibility of this vein at the antecubital fossa. Right basilic vein: Upper proximal 3.7, mid 3.3, distal 3.7, elbow 1.5, lower proximal 1.1, mid 1.8, distal 1.8. The left cephalic vein in millimeters: Upper proximal 5.7, mid 6.5, distal 6.7, elbow 9.7, lower proximal 5.0, mid 3.8, distal 3.4. The left basilic vein: Upper proximal 6.1, mid 6.3, distal 6.6, elbow 5.6, lower proximal 3.9, mid 3.5, distal 3.3. Of note, all the vessels are without thrombus, except for the right cephalic vein at the antecubital fossa which is there is some non-compressibility. IMPRESSION 1. The left cephalic vein appears to be of adequate size conduit for the fistula placement, as does the left basilic vein. 2. The right basilic vein appears adequate in terms of size only from the distal upper arm. 3. The right cephalic vein, while adequate distally and proximally there appears to be a thrombus in the antecubital fossa. [facility] A Service of [facility] RADIOLOGY TEXT RESULTS PATIENT: VELVET PORTILLO LOCATION: [address] : [birth year] UNIT #: [id number] AGE: [address]: Jose Martin Pineda MD SEX: M ORDER DR: Dictated by... Dinesh Collins M.D. THIS IS AN ELECTRONICALLY VERIFIED REPORT Dinesh Collins M.D. at 05/16/2016 12:04 PM Barney TD: 05/15/2016 19:48 JOB #: [id number] MEDICAL IMAGING REPORT Page 1 of 1 COPY
--- NOTE | ~2016-05-11 | EKG ---
PATIENT: VELVET PORTILLO UNIT #: [id number] Ventricular Rate: 63 BPM Atrial Rate: 63 BPM P-R Interval: 170 ms QRS Duration: 102 ms Q-T Interval: 446 ms QTC Calculation(Bezet): 456 ms P Vidal: 32 degrees Calculated R Vidal: -12 degrees Calculated T Vidal: 88 degrees Diagnosis Line: Normal sinus rhythm Diagnosis Line: Low voltage QRS Diagnosis Line: Borderline ECG Diagnosis Line: When compared with ECG of 25-FEB-2016 01:05, Diagnosis Line: Sinus rhythm has replaced Atrial fibrillation Diagnosis Line: Vent. rate has decreased BY 31 BPM Diagnosis Line: Confirmed by DEVIKA PRIETO MD ([id number]) on 05/27/2016 Diagnosis Line: 10:29:55 PM INTERPRETING MD: CONNER MALAVE
--- NOTE | ~2016-05-11 | MR113 ---
[facility] A Service of [facility] RADIOLOGY TEXT RESULTS PATIENT: VELVET PORTILLO LOCATION: CICCU3 CICCU3-19 : 58 UNIT #: [id number] AGE: [address]: Jose Martin Pineda MD SEX: M ORDER DR: [id number] [facility] [address] [place], [place] [address] [id number] I MR#: [id number] Acc #: [id number] NAME: VELVET PORTILLO : 1960 SEX: M STUDY DATE/TIME: 05/12/2016 19:05 UNIT: C5B ROOM: [facility] STUDY DESCRIPTION: MR Lumbar Wo Contrast Attending Physician: Jose Martin Pineda M.D. Referring Physician: Jose Martin Pineda M.D. Ordering Physician: Jose Martin Pineda M.D. Primary Care Physician: Primary Care Physician No MRI CENTER REPORT This report is preliminary unless electronic signature is present. EXAM Lumbar spine MRI without contrast COMPARISON Lumbar spine CT dated 11/03/[address] abdomen and pelvis dated 05/12/2016 HISTORY One month history of low back pain radiating to left buttock. FINDINGS There is a slight scoliosis possibly positional. There is a mild 5-1 retrolisthesis. There is degenerative marrow signal change surrounding the 5-1 disc but bone marrow signal is otherwise normal. The distal cord and conus are normal in position and appearance and the paraspinous tissues are unremarkable. At 1-2 and 2-3, the disc canal and foramina are normal. At 3-4, there is a slight disc bulge and no canal stenosis and borderline bilateral foraminal narrowing. At 4-5, there is a small central disc protrusion but no canal or lateral recess stenosis, and there is borderline if any bilateral foraminal narrowing. At 5-1, there is a left paracentral downward disc extrusion. The disc fragment measures about 1.7 x 0.8 cm on axial images and extends downward a distance of about 13 mm from the parent disc. There is mild right and moderate left foraminal stenosis. IMPRESSION Left paracentral downward disc extrusion at 5-1. There is associated moderate left foraminal stenosis but there is very heavy impingement on STS. [facility] A Service of [facility] RADIOLOGY TEXT RESULTS PATIENT: VELVET PORTILLO LOCATION: CICCU3 CICCU3-19 : 58 UNIT #: [id number] AGE: [address]: Jose Martin Pineda MD SEX: M ORDER DR: the left S1 root as it exits the thecal sac and enters the lateral recess. Minimal appearing degenerative change at other levels. Dictated by... Hugo Lynch M.D. THIS IS AN ELECTRONICALLY VERIFIED REPORT Hugo Lynch M.D. at 05/16/2016 5:01 PM PORTIA/carla TD: 05/13/2016 12:06 JOB #: [id number] MRI CENTER REPORT Page 1 of 1 COPY
--- NOTE | ~2016-05-11 | FU ---
[facility] Nutrition Therapy DATE: 06/02/16 Patient: VELVET PORTILLO Physician: CAIO Address: [address] Room/Bed: [address] [place] [address], Zip: [place] [address] Admit Date: 05/12/16 Date of : 58 Height: 5 8 Weight: 272 123.4 NUTRITION MONITORING/FOLLOW-UP: Reason: Follow up Anthropometrics: Wt 06/02: 123.4 kg Labs: Na+ 134 Cl- 99 Gluc 203 BUN 67 Creat 7.0 Accuchecks 131-153 GFR 8.0 Meds: Senokot, phenergan, novolog, zofran, bumetanide, Os-jacquie + D, sodium bicarbonate, lipitor, ferrous gluconate I&O's: 980/500, last BM 06/02 Skin: 4th and 5th toes left foot toe amputations Bruise BUE Redness/ black to left 2nd and 3rd toes Edema: None noted Diet: Renal/ HH/ CC with fluid restriction (1200 mL) Assessment: Chart reviewed, events noted. Pt is receiving HD today, and will be receiving HD three times per week. RD spoke with the pt at bedside. Pt reported having some questions regarding renal diet, and expressed a desire to improve his dietary habits. RD provided renal diet education, and nursing project coordinator had already provided printed materials for the pt's review. RD encouraged the pt to comply with the diet, and explained that an RD at the dialysis center with work with him for an individualized plan based on his labs. Pt voiced understanding, also reporting that he has had decreased appetite x 3-[address] Nepro shakes, and ordered this for the pt once daily. Dx: Excessive caloric intake RT lifestyle AEB BMI 41.2- ACTIVE/ RESOLVING Altered nutrient utilization RT PMH AEB need for therapeutic diet order- ACTIVE Intervention: 1. Renal/ HH/ CC diet 2. Fluid restriction per MD 3. Nepro once daily Monitoring, Evaluation and Goals: GOALS IN PROGRESS 1. Weight; promote gradual weight loss towards healthy BMI 2. Labs; WNL [facility] Nutrition Therapy DATE: 06/02/16 Patient: VELVET PORTILLO Physician: CAIO Address: [address] Room/Bed: [address] [place] [address], Zip: [place] [address] Admit Date: 05/12/16 Date of : 58 Height: 5 8 Weight: 272 123.4 Recommendations: 1. Continue current diet order, encouraging pt to comply with renal/ HH/ CC diet and fluid restriction per MD orders. 2. Nepro once daily for protein supplementation. Status: Pt is at mild nutritional risk. RD will continue to follow up per protocol. Respectfully, CHLOE KRUGER RD, LD [employer] [facility] [employer] cc: client file
--- NOTE | ~2016-05-11 | XA93 ---
[facility] A Service of [facility] & [facility] RADIOLOGY TEXT RESULTS PATIENT: MATT PORTILLO LOCATION: C3A PC 313-01 : 58 UNIT #: [id number] AGE: [address]: Hugo Saini MD SEX: M ORDER DR: [id number] [facility] [address] [place], [place] [address] [id number] I MR#: [id number] Acc #: [id number] NAME: MATT PORTILLO : 1960 SEX: M STUDY DATE/TIME: 05/19/2016 12:42 UNIT: C3A PCU ROOM: 313 STUDY DESCRIPTION: XA CVC Tunneled WO Pump/Port Attending Physician: Hugo Saini M.D. Referring Physician: Jose Martin Pindea M.D. Ordering Physician: Jose Martin Pineda M.D. Primary Care Physician: No Primary Care Physician MEDICAL IMAGING REPORT This report is preliminary unless electronic signature is present EXAM Tunnelled dialysis catheter placement under ultrasound and fluoroscopy HISTORY Long-term dialysis secondary to renal failure. FINDINGS Procedure, attendant risks and options were discussed with Mr. Matt Portillo. He understands and wishes to proceed. The patient has an indwelling right-sided Shiley catheter; however, the puncture site is relatively high and would preclude placement of a tunneled catheter. The patient's Shiley catheter was subsequently removed. Right neck was prepped and draped with Chlorhexidine and sterile drapes. Maximal sterile barrier technique including caps, masks, gown, gloves and shoe covers were utilized. Conscious sedation was provided for approximately 30 minutes. The right neck was anesthetized with 1% lidocaine. Under ultrasound guidance, a 22-gauge needle was advanced and an 018 wire placed and subsequently a 035 wire placed. Serial dilatation was performed with placement of a 14-Kinyarwanda introducer sheath. At this point, the right anterior chest wall site was anesthetized with 1% Xylocaine with epinephrine. A tunnel was created to the right IJ site. A dialysis catheter was passed through the tunnel and subsequent deployed through the sheath. The tip of the catheter is in the right atrium. Catheter was flushed with heparin solution and sewn in place utilizing 2-0 nylon suture. 2 spot radiographs were obtained. Total fluoroscopy time was 2.5 minutes. Total exposure estimated at 44 mGy air kerma. An ultrasound image was also acquired. [facility] A Service of [facility] RADIOLOGY TEXT RESULTS PATIENT: MATT PORTILLO LOCATION: [facility] 313-01 : 58 UNIT #: [id number] AGE: [address]: Hugo Saini MD SEX: M ORDER DR: SUMMARY Successful placement of a right-sided tunneled dialysis catheter with tip in the right atrium. Dictated by... Isiah Rodriguez M.D. THIS IS AN ELECTRONICALLY VERIFIED REPORT Isiah Rodriguez M.D. at 05/22/2016 12:00 PM Aida TD: 05/19/2016 19:54 JOB #: [id number] MEDICAL IMAGING REPORT Page 1 of 1 COPY
[~2016-05-11 23:59] MED LIST: BACTRIM DS TABL1 TAB PO; BRIMONIDINE5 ML OU; COREG3.125 MG PO; COSOPT EYE DROPS5 ML OU; FERROUS GLUCON324 MG PO; FUROSEMIDE80 MG PO; HUMULIN N100 U/ML SUBQ; HUMULIN R100 U/ML SUBQ; HYDRALAZINE HCL25 MG PO; ISOSORBIDE DINI10 MG PO; LANTUS100 U/ML SUBQ; LATANOPROST2.5 ML OS; LATANOPROST2.5 ML OU; LEVAQUIN PO; LIPITOR20 MG PO; NEURONTIN100 MG PO; NOVOLOG100 U/ML SUBQ; PAXIL10 MG PO; PERCOCET5/325 PO; ZYVOX PO
[2016-05-12 07:16] LABS: BASOPHIL# 0.1 X10e3 (0-0.3); BASOPHIL% 0.7 % (0-2.5); DIFF IND NO; EOSINOPHIL# 0.4 X10e3 (0-0.7); EOSINOPHIL% 3.3 % (0.0-7.0); HEMOGLOBIN 10.3 gm/dL (13.0-16.0); LYMPHOCYTE# 2.8 X10e3 (1.0-3.5); LYMPHOCYTE% 26.2 % (17.0-45.0); MEAN CELL VOLUME 78.5 FL (83-96); MEAN CORPUSCULAR HEMOGLOBIN 25.3 PG (28-34); MEAN CORPUSCULAR HGB CONC 32.3 g/dL (30-36); MEAN PLATELET VOLUME 8.7 FL (6.5-11.5); MONOCYTE# 0.8 X10e3 (0-1.0); MONOCYTE% 7.2 % (3.0-12.0); NEUTROPHIL# 6.7 X10e3 (1.5-7.1); NEUTROPHIL% 62.6 % (40-75); PLATELET COUNT 184 X10e3 (140-420); RED BLOOD COUNT 4.08 X10e (3.90-5.60); RED CELL DISTRIBUTION WIDTH 14.3 % (11.0-15.5); WHITE BLOOD COUNT 10.7 X10e3 (4.0-10.5)
[2016-05-12 07:48] LABS: ALBUMIN SERUM 2.7 g/dL (3.5-5.0); BILIRUBIN, DIRECT 0.1 mg/dL (0.0-0.2); BILIRUBIN,INDIRECT 0.1 mg/dL (0.0-0.9); BILIRUBIN,TOTAL 0.2 mg/dL (0.2-2.0); BUN/CREATININE RATIO 11.66; CALCIUM SERUM 8.3 mg/dL (8.4-10.2); CREATININE SERUM 4.2 mg/dL (0.6-1.4); GLOM FILT RATE Estimated 14.8 mL/min (>60); POTASSIUM 3.4 mmol/L (3.5-5.1); PROTEIN TOTAL SERUM 6.5 g/dL (6.0-8.3)
[2016-05-13 06:17] LABS: HEMATOCRIT 33.3 % (38.0-50.0); HEMOGLOBIN 10.6 gm/dL (13.0-16.0); MEAN CELL VOLUME 77.5 FL (83-96); MEAN CORPUSCULAR HEMOGLOBIN 24.8 PG (28-34); MEAN CORPUSCULAR HGB CONC 31.9 g/dL (30-36); MEAN PLATELET VOLUME 8.4 FL (6.5-11.5); RED BLOOD COUNT 4.29 X10e (3.90-5.60); RED CELL DISTRIBUTION WIDTH 14.7 % (11.0-15.5); WHITE BLOOD COUNT 11.7 X10e3 (4.0-10.5)
[2016-05-13 07:26] LABS: BUN/CREATININE RATIO 12.79; CALCIUM SERUM 8.4 mg/dL (8.4-10.2); CREATININE SERUM 4.3 mg/dL (0.6-1.4); GLOM FILT RATE Estimated 14.4 mL/min (>60); POTASSIUM 4.5 mmol/L (3.5-5.1)
[2016-05-14 05:46] LABS: HEMATOCRIT 30.4 % (38.0-50.0); HEMOGLOBIN 9.6 gm/dL (13.0-16.0); MEAN CELL VOLUME 78.3 FL (83-96); MEAN CORPUSCULAR HEMOGLOBIN 24.7 PG (28-34); MEAN CORPUSCULAR HGB CONC 31.6 g/dL (30-36); MEAN PLATELET VOLUME 8.8 FL (6.5-11.5); RED BLOOD COUNT 3.88 X10e (3.90-5.60); RED CELL DISTRIBUTION WIDTH 14.3 % (11.0-15.5); WHITE BLOOD COUNT 15.6 X10e3 (4.0-10.5)
[2016-05-14 06:44] LABS: BUN/CREATININE RATIO 13.61; CREATININE SERUM 4.7 mg/dL (0.6-1.4); GLOM FILT RATE Estimated 12.9 mL/min (>60); POTASSIUM 4.8 mmol/L (3.5-5.1)
[2016-05-15 06:39] LABS: BUN/CREATININE RATIO 15.37; CALCIUM SERUM 7.7 mg/dL (8.4-10.2); CREATININE SERUM 5.4 mg/dL (0.6-1.4); GLOM FILT RATE Estimated 10.9 mL/min (>60); POTASSIUM 5.3 mmol/L (3.5-5.1)
[2016-05-16 05:53] LABS: HEMATOCRIT 30.4 % (38.0-50.0); HEMOGLOBIN 9.6 gm/dL (13.0-16.0); MEAN CELL VOLUME 78.9 FL (83-96); MEAN CORPUSCULAR HEMOGLOBIN 24.9 PG (28-34); MEAN CORPUSCULAR HGB CONC 31.6 g/dL (30-36); MEAN PLATELET VOLUME 8.8 FL (6.5-11.5); RED BLOOD COUNT 3.85 X10e (3.90-5.60); RED CELL DISTRIBUTION WIDTH 14.6 % (11.0-15.5); WHITE BLOOD COUNT 12.9 X10e3 (4.0-10.5)
[2016-05-16 06:26] LABS: BUN/CREATININE RATIO 14.17; CALCIUM SERUM 6.9 mg/dL (8.4-10.2); CREATININE SERUM 6.7 mg/dL (0.6-1.4); GLOM FILT RATE Estimated 8.4 mL/min (>60); POTASSIUM 4.9 mmol/L (3.5-5.1)
[2016-05-16 06:30] LABS: PHOSPHOROUS 9.7 mg/dL (2.5-4.6)
[2016-05-16 10:11] LABS: ARTERIAL BLD GAS O2 SATURATION 92.8 % (90.0-100.0); ARTERIAL BLOOD GAS CARBOXY HB 0.6 %sat (0.0-9.0); ARTERIAL BLOOD GAS HCO3 17.1 mmol/L; ARTERIAL BLOOD GAS MET HB 0.4 %sat (0.0-2.0); ARTERIAL BLOOD GAS PCO2 43.9 mmHg (35.0-45.0)
[2016-05-16 10:14] LABS: ARTERIAL BLOOD GAS ALLEN TEST Y; ARTERIAL BLOOD GAS ART SITE LEFT RADIAL; ARTERIAL BLOOD GAS PO2 78.6 mmHg (80.0-100); ARTERIAL BLOOD GAS pH 7.198 (7.350-7.450); ARTERIAL DRAW? YES
[2016-05-16 11:53] LABS: ARTERIAL BLD GAS O2 SATURATION 98.6 % (90.0-100.0); ARTERIAL BLOOD GAS CARBOXY HB 0.4 %sat (0.0-9.0); ARTERIAL BLOOD GAS HCO3 16.1 mmol/L; ARTERIAL BLOOD GAS MET HB 0.9 %sat (0.0-2.0); ARTERIAL BLOOD GAS PCO2 34.6 mmHg (35.0-45.0); ARTERIAL BLOOD GAS pH 7.277 (7.350-7.450)
[2016-05-16 11:54] LABS: ARTERIAL BLOOD GAS ART SITE RIGHT RADIAL; ARTERIAL BLOOD GAS DELIVERY BIPAP 16/5; ARTERIAL DRAW? YES
[2016-05-16 15:19] LABS: ARTERIAL BLD GAS O2 SATURATION 98.5 % (90.0-100.0); ARTERIAL BLOOD GAS CARBOXY HB 0.1 %sat (0.0-9.0); ARTERIAL BLOOD GAS HCO3 17.2 mmol/L; ARTERIAL BLOOD GAS MET HB 0.9 %sat (0.0-2.0); ARTERIAL BLOOD GAS PCO2 39.9 mmHg (35.0-45.0); ARTERIAL BLOOD GAS pH 7.244 (7.350-7.450)
[2016-05-16 15:20] LABS: ARTERIAL BLOOD GAS ART SITE RIGHT RADIAL; ARTERIAL BLOOD GAS DELIVERY BIPAP 16/5; ARTERIAL DRAW? YES
[2016-05-17 04:42] LABS: ARTERIAL BLD GAS O2 SATURATION 98.5 % (90.0-100.0); ARTERIAL BLOOD GAS CARBOXY HB 0.5 %sat (0.0-9.0); ARTERIAL BLOOD GAS HCO3 17.4 mmol/L; ARTERIAL BLOOD GAS MET HB 0.9 %sat (0.0-2.0); ARTERIAL BLOOD GAS PCO2 39.5 mmHg (35.0-45.0); ARTERIAL BLOOD GAS pH 7.253 (7.350-7.450)
[2016-05-17 04:50] LABS: ARTERIAL BLOOD GAS ALLEN TEST NORMAL; ARTERIAL BLOOD GAS ART SITE LEFT RADIAL; ARTERIAL BLOOD GAS DELIVERY BIPAP 16/5 R16; ARTERIAL DRAW? YES
[2016-05-17 06:45] LABS: ALBUMIN SERUM 2.8 g/dL (3.5-5.0); BILIRUBIN,TOTAL 0.5 mg/dL (0.2-2.0); BUN/CREATININE RATIO 14.12; CALCIUM SERUM 7.6 mg/dL (8.4-10.2); CREATININE SERUM 6.3 mg/dL (0.6-1.4); POTASSIUM 4.4 mmol/L (3.5-5.1); PROTEIN TOTAL SERUM 5.8 g/dL (6.0-8.3)
[2016-05-17 07:07] LABS: PHOSPHOROUS 8.7 mg/dL (2.5-4.6)
[2016-05-17 09:59] LABS: BASOPHIL# 0.1 X10e3 (0-0.3); BASOPHIL% 0.7 % (0-2.5); EOSINOPHIL# 0.3 X10e3 (0-0.7); EOSINOPHIL% 2.6 % (0.0-7.0); HEMATOCRIT 30.8 % (38.0-50.0); HEMOGLOBIN 9.8 gm/dL (13.0-16.0); LYMPHOCYTE% 17.5 % (17.0-45.0); MEAN CELL VOLUME 78.6 FL (83-96); MEAN CORPUSCULAR HEMOGLOBIN 24.9 PG (28-34); MEAN CORPUSCULAR HGB CONC 31.7 g/dL (30-36); MEAN PLATELET VOLUME 8.7 FL (6.5-11.5); MONOCYTE# 1.2 X10e3 (0-1.0); MONOCYTE% 9.9 % (3.0-12.0); NEUTROPHIL# 8.1 X10e3 (1.5-7.1); NEUTROPHIL% 69.3 % (40-75); PLATELET COUNT 136 X10e3 (140-420); RED BLOOD COUNT 3.92 X10e (3.90-5.60); RED CELL DISTRIBUTION WIDTH 14.3 % (11.0-15.5); WHITE BLOOD COUNT 11.7 X10e3 (4.0-10.5)
[2016-05-17 10:01] LABS: DIFF IND YES
[2016-05-17 10:26] LABS: PLATELET ESTIMATE NORMAL (NORMAL); RBC NORMAL YES
[2016-05-18 04:43] LABS: ARTERIAL BLD GAS O2 SATURATION 99.4 % (90.0-100.0); ARTERIAL BLOOD GAS ALLEN TEST NORMAL; ARTERIAL BLOOD GAS ART SITE LEFT RADIAL; ARTERIAL BLOOD GAS CARBOXY HB 0.4 %sat (0.0-9.0); ARTERIAL BLOOD GAS DELIVERY NASAL CANNULA; ARTERIAL BLOOD GAS PCO2 35.6 mmHg (35.0-45.0); ARTERIAL BLOOD GAS pH 7.358 (7.350-7.450); ARTERIAL DRAW? YES
[2016-05-18 06:02] LABS: BASOPHIL% 0.3 % (0-2.5); EOSINOPHIL# 0.2 X10e3 (0-0.7); EOSINOPHIL% 1.4 % (0.0-7.0); HEMATOCRIT 29.1 % (38.0-50.0); HEMOGLOBIN 9.3 gm/dL (13.0-16.0); LYMPHOCYTE# 2.2 X10e3 (1.0-3.5); LYMPHOCYTE% 19.3 % (17.0-45.0); MEAN CORPUSCULAR HEMOGLOBIN 24.7 PG (28-34); MEAN PLATELET VOLUME 8.7 FL (6.5-11.5); MONOCYTE# 1.5 X10e3 (0-1.0); MONOCYTE% 13.1 % (3.0-12.0); NEUTROPHIL# 7.7 X10e3 (1.5-7.1); NEUTROPHIL% 65.9 % (40-75); PLATELET COUNT 160 X10e3 (140-420); RED BLOOD COUNT 3.77 X10e (3.90-5.60); RED CELL DISTRIBUTION WIDTH 14.2 % (11.0-15.5); WHITE BLOOD COUNT 11.6 X10e3 (4.0-10.5)
[2016-05-18 06:07] LABS: DIFF IND NO
[2016-05-18 06:47] LABS: ALBUMIN SERUM 2.6 g/dL (3.5-5.0); BILIRUBIN,TOTAL 0.4 mg/dL (0.2-2.0); BUN/CREATININE RATIO 13.6; CALCIUM SERUM 7.5 mg/dL (8.4-10.2); CREATININE SERUM 6.1 mg/dL (0.6-1.4); GLOM FILT RATE Estimated 9.4 mL/min (>60); MAGNESIUM 1.9 mg/dL (1.6-3.0); POTASSIUM 4.6 mmol/L (3.5-5.1); PROTEIN TOTAL SERUM 5.5 g/dL (6.0-8.3)
[2016-05-19 06:20] LABS: HEMATOCRIT 31.1 % (38.0-50.0); MEAN CELL VOLUME 76.7 FL (83-96); MEAN CORPUSCULAR HEMOGLOBIN 24.5 PG (28-34); MEAN PLATELET VOLUME 8.2 FL (6.5-11.5); RED BLOOD COUNT 4.06 X10e (3.90-5.60); RED CELL DISTRIBUTION WIDTH 14.8 % (11.0-15.5); WHITE BLOOD COUNT 11.7 X10e3 (4.0-10.5)
[2016-05-19 07:17] LABS: BUN/CREATININE RATIO 14.69; CALCIUM SERUM 8.2 mg/dL (8.4-10.2); CREATININE SERUM 6.6 mg/dL (0.6-1.4); GLOM FILT RATE Estimated 8.6 mL/min (>60); POTASSIUM 4.4 mmol/L (3.5-5.1)
[2016-05-19 07:20] LABS: PHOSPHOROUS 8.4 mg/dL (2.5-4.6)
[2016-05-19 11:40] LABS: INR 0.9; PARTIAL THROMBOPLASTIN TIME 29.3 SECONDS (23.5-31.3); PROTHROMBIN TIME (PATIENT) 9.8 SECONDS (9.6-11.5)
[2016-05-20 05:52] LABS: HEMATOCRIT 30.9 % (38.0-50.0); HEMOGLOBIN 9.9 gm/dL (13.0-16.0); MEAN CELL VOLUME 76.9 FL (83-96); MEAN CORPUSCULAR HEMOGLOBIN 24.8 PG (28-34); MEAN CORPUSCULAR HGB CONC 32.2 g/dL (30-36); MEAN PLATELET VOLUME 8.4 FL (6.5-11.5); RED BLOOD COUNT 4.01 X10e (3.90-5.60); RED CELL DISTRIBUTION WIDTH 14.4 % (11.0-15.5); WHITE BLOOD COUNT 10.9 X10e3 (4.0-10.5)
[2016-05-20 06:58] LABS: BUN/CREATININE RATIO 13.96; CALCIUM SERUM 8.4 mg/dL (8.4-10.2); CREATININE SERUM 5.3 mg/dL (0.6-1.4); GLOM FILT RATE Estimated 11.2 mL/min (>60); MAGNESIUM 2.1 mg/dL (1.6-3.0); PHOSPHOROUS 6.8 mg/dL (2.5-4.6); POTASSIUM 4.4 mmol/L (3.5-5.1)
[2016-05-21 07:10] LABS: HEMOGLOBIN 10.7 gm/dL (13.0-16.0); MEAN CELL VOLUME 77.5 FL (83-96); MEAN CORPUSCULAR HGB CONC 32.3 g/dL (30-36); MEAN PLATELET VOLUME 8.3 FL (6.5-11.5); RED BLOOD COUNT 4.26 X10e (3.90-5.60); RED CELL DISTRIBUTION WIDTH 14.6 % (11.0-15.5); WHITE BLOOD COUNT 11.9 X10e3 (4.0-10.5)
[2016-05-21 07:49] LABS: POTASSIUM 3.8 mmol/L (3.5-5.1)
[2016-05-21 07:58] LABS: BUN/CREATININE RATIO 11.28; CREATININE SERUM 3.9 mg/dL (0.6-1.4); GLOM FILT RATE Estimated 16.2 mL/min (>60); PHOSPHOROUS 5.3 mg/dL (2.5-4.6)
[2016-05-22 06:39] LABS: HEMATOCRIT 34.3 % (38.0-50.0); HEMOGLOBIN 10.8 gm/dL (13.0-16.0); MEAN CELL VOLUME 78.3 FL (83-96); MEAN CORPUSCULAR HEMOGLOBIN 24.6 PG (28-34); MEAN CORPUSCULAR HGB CONC 31.5 g/dL (30-36); MEAN PLATELET VOLUME 8.3 FL (6.5-11.5); RED BLOOD COUNT 4.38 X10e (3.90-5.60); RED CELL DISTRIBUTION WIDTH 14.5 % (11.0-15.5); WHITE BLOOD COUNT 11.4 X10e3 (4.0-10.5)
[2016-05-22 06:56] LABS: CALCIUM SERUM 9.2 mg/dL (8.4-10.2); GLOM FILT RATE Estimated 15.7 mL/min (>60); POTASSIUM 3.9 mmol/L (3.5-5.1)
[2016-05-22 15:54] LABS: CALCIUM (PTHINTACT) 7.5 mg/dL (8.6-10.3)
[2016-05-23 05:40] LABS: HEMATOCRIT 31.3 % (38.0-50.0); MEAN CELL VOLUME 77.8 FL (83-96); MEAN CORPUSCULAR HEMOGLOBIN 24.9 PG (28-34); MEAN CORPUSCULAR HGB CONC 32.1 g/dL (30-36); MEAN PLATELET VOLUME 8.1 FL (6.5-11.5); RED BLOOD COUNT 4.02 X10e (3.90-5.60); RED CELL DISTRIBUTION WIDTH 14.7 % (11.0-15.5); WHITE BLOOD COUNT 11.1 X10e3 (4.0-10.5)
[2016-05-23 06:07] LABS: BUN/CREATININE RATIO 8.72; CALCIUM SERUM 9.3 mg/dL (8.4-10.2); CREATININE SERUM 5.5 mg/dL (0.6-1.4); GLOM FILT RATE Estimated 10.7 mL/min (>60); MAGNESIUM 2.1 mg/dL (1.6-3.0); POTASSIUM 3.8 mmol/L (3.5-5.1)
[2016-05-25 11:34] LABS: HEMATOCRIT 34.2 % (38.0-50.0); HEMOGLOBIN 10.7 gm/dL (13.0-16.0); MEAN CELL VOLUME 78.2 FL (83-96); MEAN CORPUSCULAR HEMOGLOBIN 24.5 PG (28-34); MEAN CORPUSCULAR HGB CONC 31.4 g/dL (30-36); MEAN PLATELET VOLUME 7.6 FL (6.5-11.5); RED BLOOD COUNT 4.38 X10e (3.90-5.60); RED CELL DISTRIBUTION WIDTH 14.9 % (11.0-15.5); WHITE BLOOD COUNT 14.6 X10e3 (4.0-10.5)
[2016-05-25 12:13] LABS: BUN/CREATININE RATIO 8.94; CALCIUM SERUM 8.7 mg/dL (8.4-10.2); CREATININE SERUM 5.7 mg/dL (0.6-1.4); GLOM FILT RATE Estimated 10.2 mL/min (>60); POTASSIUM 4.2 mmol/L (3.5-5.1)
[2016-05-27 10:18] LABS: BUN/CREATININE RATIO 9.46; CALCIUM SERUM 9.1 mg/dL (8.4-10.2); CREATININE SERUM 5.6 mg/dL (0.6-1.4); GLOM FILT RATE Estimated 10.4 mL/min (>60); MAGNESIUM 2.3 mg/dL (1.6-3.0); POTASSIUM 4.9 mmol/L (3.5-5.1)
[2016-05-27 15:07] LABS: %MB 6.6 % (0.0-4.0); MB 4.1 ng/ml
[2016-05-27 20:51] LABS: %MB 6.8 % (0.0-4.0); MB 4.3 ng/ml
[2016-05-28 09:22] LABS: HEMATOCRIT 33.7 % (38.0-50.0); HEMOGLOBIN 10.6 gm/dL (13.0-16.0); MEAN CELL VOLUME 78.6 FL (83-96); MEAN CORPUSCULAR HEMOGLOBIN 24.7 PG (28-34); MEAN CORPUSCULAR HGB CONC 31.4 g/dL (30-36); MEAN PLATELET VOLUME 8.1 FL (6.5-11.5); RED BLOOD COUNT 4.29 X10e (3.90-5.60); RED CELL DISTRIBUTION WIDTH 14.7 % (11.0-15.5); WHITE BLOOD COUNT 11.1 X10e3 (4.0-10.5)
[2016-05-28 10:01] LABS: BUN/CREATININE RATIO 10.76; CALCIUM SERUM 9.3 mg/dL (8.4-10.2); CREATININE SERUM 6.5 mg/dL (0.6-1.4); GLOM FILT RATE Estimated 8.7 mL/min (>60); MAGNESIUM 2.4 mg/dL (1.6-3.0); POTASSIUM 4.6 mmol/L (3.5-5.1)
[2016-05-30 10:43] LABS: BUN/CREATININE RATIO 10.6; CALCIUM SERUM 8.8 mg/dL (8.4-10.2); POTASSIUM 4.4 mmol/L (3.5-5.1)
[2016-06-02 14:17] LABS: HEMATOCRIT 30.5 % (38.0-50.0); HEMOGLOBIN 9.7 gm/dL (13.0-16.0); MEAN CORPUSCULAR HEMOGLOBIN 25.1 PG (28-34); MEAN CORPUSCULAR HGB CONC 31.8 g/dL (30-36); MEAN PLATELET VOLUME 8.3 FL (6.5-11.5); RED BLOOD COUNT 3.86 X10e (3.90-5.60); RED CELL DISTRIBUTION WIDTH 14.4 % (11.0-15.5); WHITE BLOOD COUNT 8.3 X10e3 (4.0-10.5)
[2016-06-02 14:38] LABS: BUN/CREATININE RATIO 9.57; MAGNESIUM 2.1 mg/dL (1.6-3.0); POTASSIUM 4.6 mmol/L (3.5-5.1)
[2016-06-03 12:14] LABS: BUN/CREATININE RATIO 10.42; CREATININE SERUM 7.1 mg/dL (0.6-1.4); GLOM FILT RATE Estimated 7.8 mL/min (>60); POTASSIUM 4.7 mmol/L (3.5-5.1)
[2016-06-03] MEDS ORDERED: SODIUM BICARBO650 MG PO (18:13)
[2016-06-03] MEDS ORDERED: BUMEX2 MG PO (18:14)
[2016-06-03] MEDS ORDERED: CYMBALTA30 M1 PO (18:14)
[2016-06-03] MEDS ORDERED: COZAAR PO (18:15)
[2016-06-03] MEDS ORDERED: HYDRALAZINE HC100 MG PO (18:15)
[2016-06-03] MEDS ORDERED: ASPIRIN81 MG PO (18:16)
[2016-06-03] MEDS ORDERED: COREG12.5 MG PO (18:48)
[2016-06-03] MEDS ORDERED: RENAGEL800 MG PO (18:49)
== END 2016-06-03 23:05 | disposition home or self-care (01) | DRG 291 ==
LOC: CED 23:59 → CEDOF 05-12 06:58 → C5B 05-12 16:47 → CICCU3 05-16 11:05 → CICCU2 05-16 17:48 → C3A PCU 05-17 21:57
PROVIDERS: Family Medicine; Internal Medicine; Internal Medicine Cardiovascular Disease; Internal Medicine Nephrology; Nurse Practitioner Family; Physician Assistant Medical
PROC: 3E0R33Z Introduction of Anti-inflammatory into Spinal Canal, Percutaneous Approach (ICD-10-PCS; 2016-05-14)
PROC: 02H633Z Insertion of Infusion Device into Right Atrium, Percutaneous Approach (ICD-10-PCS; 2016-05-19)
PROC: B244ZZZ Ultrasonography of Right Heart (ICD-10-PCS; 2016-05-19)
PROC: 5A1D60Z (ICD-10-PCS; principal; 2016-05-20)
DX: I13.2 Hypertensive heart and chronic kidney disease with heart failure and with stage 5 chronic kidney disease, or end stage renal disease (principal); N18.6 End stage renal disease; J96.00 Acute respiratory failure, unspecified whether with hypoxia or hypercapnia; G92 Toxic encephalopathy; I47.2 Ventricular tachycardia; N17.9 Acute kidney failure, unspecified; E87.2 Acidosis; I50.32 Chronic diastolic (congestive) heart failure; Z68.42 Body mass index [BMI] 45.0-49.9, adult; E44.1 Mild protein-calorie malnutrition; E87.1 Hypo-osmolality and hyponatremia; E11.22 Type 2 diabetes mellitus with diabetic chronic kidney disease; E11.65 Type 2 diabetes mellitus with hyperglycemia; Z99.2 Dependence on renal dialysis; Z79.4 Long term (current) use of insulin; M48.06 Spinal stenosis, lumbar region; D63.1 Anemia in chronic kidney disease; I48.0 Paroxysmal atrial fibrillation; E66.01 Morbid (severe) obesity due to excess calories; G47.33 Obstructive sleep apnea (adult) (pediatric); Z91.14 Patient's other noncompliance with medication regimen; H54.41 Blindness, right eye, normal vision left eye; E83.51 Hypocalcemia; E83.39 Other disorders of phosphorus metabolism; M51.16 Intervertebral disc disorders with radiculopathy, lumbar region; E11.42 Type 2 diabetes mellitus with diabetic polyneuropathy; Z89.422 Acquired absence of other left toe(s); Z88.0 Allergy status to penicillin; E87.70 Fluid overload, unspecified; G89.29 Other chronic pain; E87.5 Hyperkalemia; K59.00 Constipation, unspecified; Z86.69 Personal history of other diseases of the nervous system and sense organs
CPT/HCPCS: 36415; 36600; 70450; 71010; 71250; 72100; 72148; 74176; 76937; 77001; 80048; 80053; 80076; 80200; 80202; 82306; 82310; 82330; 82550; 82553; 82652; 82803; 82947; 83036; 83605; 83735; 83880; 83970; 84100; 84443; 84484; 85025; 85027; 85610; 85730; 87040; 87340; 93005; 94660; 94760; 97110; 97116; 97162; 97166; 97530; 97535; 99285; C1750; C1894; G0365; J0360; J0610; J0692; J0885; J1040; J1642; J1644; J1815; J2150; J2250; J2310; J2405; J2920; J3010; J3260; J3370; Q4081